=== PATIENT | female | born 1965 | race African-American/Black ===

== ENCOUNTER 2017-05-16 10:05 | Emergency (ER) | payer OTHER ==
[~2017-05-16] VITALS: Ht 157.5 cm; Wt 62.3 kg
[~2017-05-16 10:05] MED LIST: ALBU8.5H IH; AMLO-512 PO; BACL10TA PO; CLON.5 PO; FERR-89 PO; GABA-533 PO; HYDR200T4 PO; LORA10TA7 PO; OMEP20 PO; PRED5 PO; PROZ10 PO; SENN1TAB PO; SENN8.6T90 PO; VIST50 PO; VIT.D PO
[2017-05-16] MEDS ORDERED: DIPH25 PO (10:55)
[2017-05-16] MEDS ORDERED: HYDR200T4 PO (10:55)
[2017-05-16] MEDS ORDERED: ZOLP5 PO (10:55)
[2017-05-16] MEDS ORDERED: LACT30L PO (10:55)
[2017-05-16] MEDS ORDERED: BISA5TAB12 PO (10:55)
[2017-05-16] MEDS ORDERED: SUMA25TA9 PO (10:55)
[2017-05-16] MEDS ORDERED: CYCL10 PO (10:55)
[2017-05-16] MEDS ORDERED: FLUT16H NASAL (10:55)
[2017-05-16] MEDS ORDERED: NAPH10DR OU (10:57)
[2017-05-16] MEDS ORDERED: OxyCODONE HCL/ACETAMINOPHEN 5-325 MG TABLET PO ONE (12:00)
[2017-05-16] MEDS ORDERED: KETOROLAC TROMETHAMINE 60 MG/2 ML VIAL IM ONE (12:00)
[2017-05-16] MEDS ORDERED: ONDANSETRON HCL 4 MG TABLET PO ONE (12:15)
[2017-05-16 13:20] VITALS: BP 119/77
== END 2017-05-16 13:54 | disposition home or self-care (01) ==
LOC: EMS 10:06
DX: S39.012A Strain of muscle, fascia and tendon of lower back, initial encounter (principal); R07.89 Other chest pain; I10 Essential (primary) hypertension; F32.9 Major depressive disorder, single episode, unspecified; F41.9 Anxiety disorder, unspecified; G43.909 Migraine, unspecified, not intractable, without status migrainosus; F20.9 Schizophrenia, unspecified; M19.90 Unspecified osteoarthritis, unspecified site; F17.210 Nicotine dependence, cigarettes, uncomplicated; M81.0 Age-related osteoporosis without current pathological fracture; M32.9 Systemic lupus erythematosus, unspecified; Z88.8 Allergy status to other drugs, medicaments and biological substances; Z85.89 Personal history of malignant neoplasm of other organs and systems; X58.XXXA Exposure to other specified factors, initial encounter; Y93.89 Activity, other specified; Y92.89 Other specified places as the place of occurrence of the external cause; Y99.9 Unspecified external cause status
CPT/HCPCS: 71010; 93005; 96372; 99284; J1885; Q0162

== ENCOUNTER 2017-09-16 09:12 | Emergency (ER) | payer OTHER ==
[~2017-09-16] VITALS: Ht 157.5 cm; Wt 61.0 kg
[~2017-09-16 09:12] MED LIST changes: -ALBU8.5H IH; +ALBU8.5H8 IH; -BACL10TA PO; +BISA5TAB12 PO; +CYCL10 PO; +DIPH25 PO; -FERR-89 PO; +FLUT16H NASAL; +LACT30L PO; +NAPH10DR OU; -PROZ10 PO; -SENN1TAB PO; -SENN8.6T90 PO; +SUMA25TA9 PO; +ZOLP5 PO
[2017-09-16] MEDS ORDERED: DULO20CA30 PO (09:38)
[2017-09-16] MEDS ORDERED: ACET325T47 PO (09:38)
[2017-09-16 09:57] VITALS: BP 132/85
[2017-09-16] MEDS ORDERED: PROPOFOL 1000 MG/ISO-OSM 100 ML IV PRN (10:15)
[2017-09-16] MEDS ORDERED: KETOROLAC TROMETHAMINE 60 MG/2 ML VIAL IM ONE (10:45)
[2017-09-16] MEDS ORDERED: VITAD1000 PO (10:45)
[2017-09-16] MEDS ORDERED: HYDR-4031 PO (10:45)
[2017-09-16] MEDS ORDERED: METOCLOPRAMIDE HCL 5 MG/ML 2 ML VIAL IM ONE (10:45)
[2017-09-16] MEDS ORDERED: PRED10 PO (10:45)
== END 2017-09-16 10:57 | disposition home or self-care (01) ==
LOC: EMS 09:15
DX: J01.90 Acute sinusitis, unspecified (principal); L93.0 Discoid lupus erythematosus; G43.909 Migraine, unspecified, not intractable, without status migrainosus; I10 Essential (primary) hypertension; F17.210 Nicotine dependence, cigarettes, uncomplicated; Z88.8 Allergy status to other drugs, medicaments and biological substances
CPT/HCPCS: 71010; 96372; 99284; 99406; J1885; J2765

== ENCOUNTER 2018-02-14 10:03 | Emergency (ER) | payer OTHER ==
[~2018-02-14] VITALS: Ht 157.5 cm; Wt 61.0 kg
[~2018-02-14 10:03] MED LIST changes: +ACET325T47 PO; +DULO20CA30 PO; +HYDR-4031 PO; +PRED10 PO; -PRED5 PO; -VIST50 PO; -VIT.D PO; +VITAD1000 PO
[2018-02-14] MEDS ORDERED: PROZ10 PO (10:21)
[2018-02-14 10:50] VITALS: BP 133/97
[2018-02-14] MEDS ORDERED: KETOROLAC TROMETHAMINE 60 MG/2 ML VIAL IM ONE (11:15)
[2018-02-14] MEDS ORDERED: SODIUM CHLORIDE 0.9% 1,000 ML IV ONE (11:18)
== END 2018-02-14 11:33 | disposition home or self-care (01) ==
LOC: EMS 10:09
DX: G89.29 Other chronic pain (principal); L02.31 Cutaneous abscess of buttock; M25.521 Pain in right elbow; M25.522 Pain in left elbow; F17.210 Nicotine dependence, cigarettes, uncomplicated; Z95.0 Presence of cardiac pacemaker; I10 Essential (primary) hypertension; M19.90 Unspecified osteoarthritis, unspecified site; G43.909 Migraine, unspecified, not intractable, without status migrainosus
CPT/HCPCS: 96372; 99283; J1885; J7030

== ENCOUNTER 2018-05-21 12:07 | Emergency (ER) | payer OTHER ==
[~2018-05-21] VITALS: Ht 157.5 cm; Wt 59.1 kg
[~2018-05-21 12:07] MED LIST changes: -DULO20CA30 PO; +PROZ10 PO
[2018-05-21] MEDS ORDERED: GABA-531 PO (12:58)
[2018-05-21] MEDS ORDERED: DiphenhydrAMINE HCL 25 MG CAPSULE PO ONE (13:00)
[2018-05-21] MEDS ORDERED: ACETAMINOPHEN 325 MG TABLET PO ONE (13:00)
[2018-05-21] MEDS ORDERED: KETOROLAC TROMETHAMINE 30 MG/ML VIAL IM ONE (13:00)
[2018-05-21 14:58] VITALS: BP 115/71
== END 2018-05-21 14:59 | disposition home or self-care (01) ==
LOC: EMS 12:07
DX: S53.401A Unspecified sprain of right elbow, initial encounter (principal); R21 Rash and other nonspecific skin eruption; I10 Essential (primary) hypertension; F17.210 Nicotine dependence, cigarettes, uncomplicated; Z88.8 Allergy status to other drugs, medicaments and biological substances; Z91.041 Radiographic dye allergy status; W18.39XA Other fall on same level, initial encounter; Y93.89 Activity, other specified; Y92.89 Other specified places as the place of occurrence of the external cause; Y99.8 Other external cause status
CPT/HCPCS: 73080; 96372; 99284; J1885

== ENCOUNTER 2018-06-27 09:52 | Emergency (ER) | payer OTHER ==
[~2018-06-27] VITALS: Ht 157.5 cm; Wt 62.0 kg
[~2018-06-27 09:52] MED LIST changes: +GABA-531 PO; -GABA-533 PO; -PROZ10 PO
[2018-06-27] MEDS ORDERED: IBUPROFEN 600 MG TABLET PO ONE (10:15)
[2018-06-27 11:23] VITALS: BP 145/94
== END 2018-06-27 11:30 | disposition home or self-care (01) ==
LOC: EMS 09:52
DX: S93.602A Unspecified sprain of left foot, initial encounter (principal); I10 Essential (primary) hypertension; F41.9 Anxiety disorder, unspecified; F32.9 Major depressive disorder, single episode, unspecified; F17.210 Nicotine dependence, cigarettes, uncomplicated; Z88.8 Allergy status to other drugs, medicaments and biological substances; Z91.041 Radiographic dye allergy status; X58.XXXA Exposure to other specified factors, initial encounter; Y93.89 Activity, other specified; Y92.89 Other specified places as the place of occurrence of the external cause; Y99.8 Other external cause status
CPT/HCPCS: 99284

== ENCOUNTER 2019-02-23 11:04 | Emergency (ER) | payer OTHER ==
[~2019-02-23] VITALS: Ht 157.5 cm; Wt 63.6 kg
[2019-02-23] MEDS ORDERED: LIDO1ADH48 TP (11:27)
[2019-02-23] MEDS ORDERED: TRI405I TP (11:27)
[2019-02-23] MEDS ORDERED: PRED5 PO (11:27)
[2019-02-23] MEDS ORDERED: PLEC3TAB PO (11:27)
[2019-02-23] MEDS ORDERED: ALEN35TA32 PO (11:27)
[2019-02-23] MEDS ORDERED: ZOLP10TA7 PO (11:27)
[2019-02-23] MEDS ORDERED: DOCU-281 PO (11:27)
[2019-02-23] MEDS ORDERED: ASPI-988 PO (11:27)
[2019-02-23] MEDS ORDERED: HYDROCODONE/ACETAMINOPHEN 5-325 MG TABLET PO ONE (12:00)
[2019-02-23] MEDS ORDERED: PROMETHAZINE HCL 25 MG TABLET PO ONE (12:00)
[2019-02-23] MEDS ORDERED: KETOROLAC TROMETHAMINE 30 MG/ML VIAL IM ONE (12:00)
[2019-02-23 13:04] VITALS: BP 114/74
== END 2019-02-23 13:13 | disposition home or self-care (01) ==
LOC: EMS 11:05
DX: G89.29 Other chronic pain (principal); M54.5 Low back pain; I10 Essential (primary) hypertension; F32.9 Major depressive disorder, single episode, unspecified; F20.9 Schizophrenia, unspecified; F41.9 Anxiety disorder, unspecified; F17.210 Nicotine dependence, cigarettes, uncomplicated; Z91.041 Radiographic dye allergy status; Z88.8 Allergy status to other drugs, medicaments and biological substances; Z79.899 Other long term (current) drug therapy
CPT/HCPCS: 96372; 99283; J1885

== ENCOUNTER 2019-08-23 10:53 | Emergency (ER) | payer OTHER ==
[~2019-08-23] VITALS: Ht 157.5 cm; Wt 63.6 kg
[~2019-08-23 10:53] MED LIST changes: +ALEN35TA23 PO; -AMLO-512 PO; +AMLO10TA7 PO; +ASPI-988 PO; -BISA5TAB12 PO; +CHOL100018 PO; +DOCU-281 PO; +LIDO1ADH48 TP; +PLEC3TAB PO; -PRED10 PO; +PRED5 PO; +TRIA40VI TP; -VITAD1000 PO; +ZOLP10TA7 PO; -ZOLP5 PO
[2019-08-23] MEDS ORDERED: DiphenhydrAMINE HCL 25 MG CAPSULE PO ONE (13:15)
[2019-08-23 14:46] VITALS: BP 141/98
== END 2019-08-23 15:31 | disposition home or self-care (01) ==
LOC: EMS 10:55
DX: S60.011A Contusion of right thumb without damage to nail, initial encounter (principal); F41.9 Anxiety disorder, unspecified; F32.9 Major depressive disorder, single episode, unspecified; I10 Essential (primary) hypertension; G43.909 Migraine, unspecified, not intractable, without status migrainosus; F20.9 Schizophrenia, unspecified; F17.210 Nicotine dependence, cigarettes, uncomplicated; Z95.0 Presence of cardiac pacemaker; Z88.8 Allergy status to other drugs, medicaments and biological substances; Z91.041 Radiographic dye allergy status; X58.XXXA Exposure to other specified factors, initial encounter; Y93.89 Activity, other specified; Y92.89 Other specified places as the place of occurrence of the external cause; Y99.8 Other external cause status

== ENCOUNTER 2020-01-02 09:20 | Emergency (ER) | payer OTHER ==
[~2020-01-02] VITALS: Ht 157.5 cm; Wt 65.0 kg
[2020-01-02] MEDS ORDERED: KETOROLAC TROMETHAMINE 30 MG/ML VIAL IM ONE (11:00)
[2020-01-02 11:20] VITALS: BP 126/92
== END 2020-01-02 11:39 | disposition home or self-care (01) ==
LOC: EMS 09:23
DX: G89.29 Other chronic pain (principal); M54.5 Low back pain; F41.9 Anxiety disorder, unspecified; F32.9 Major depressive disorder, single episode, unspecified; I10 Essential (primary) hypertension; G43.909 Migraine, unspecified, not intractable, without status migrainosus; F20.9 Schizophrenia, unspecified; F17.210 Nicotine dependence, cigarettes, uncomplicated; Z95.0 Presence of cardiac pacemaker; Z88.8 Allergy status to other drugs, medicaments and biological substances; Z91.041 Radiographic dye allergy status
CPT/HCPCS: 96372; 99283; J1885

== ENCOUNTER 2020-03-11 09:23 | Emergency (ER) | payer OTHER ==
[~2020-03-11] VITALS: Ht 157.5 cm; Wt 63.6 kg
[~2020-03-11 09:23] MED LIST changes: +ACET-3407 PO; -ACET325T47 PO; -ALEN35TA23 PO; +ALEN35TA41 PO; +GABA-1181 PO; -GABA-531 PO; -ZOLP10TA7 PO; +ZOLP10TA8 PO
[2020-03-11] MEDS ORDERED: KETOROLAC TROMETHAMINE 30 MG/ML VIAL IM ONE (10:45)
[2020-03-11] MEDS ORDERED: LIDOCAINE 5% TRANSDERMAL PATCH TD ONE (10:45)
[2020-03-11 11:10] VITALS: BP 137/84
== END 2020-03-11 11:15 | disposition home or self-care (01) ==
LOC: EMS 09:41
DX: S39.012A Strain of muscle, fascia and tendon of lower back, initial encounter (principal); S40.021A Contusion of right upper arm, initial encounter; F17.210 Nicotine dependence, cigarettes, uncomplicated; F32.9 Major depressive disorder, single episode, unspecified; F20.9 Schizophrenia, unspecified; F41.9 Anxiety disorder, unspecified; I10 Essential (primary) hypertension; W19.XXXA Unspecified fall, initial encounter; Y93.89 Activity, other specified; Y92.89 Other specified places as the place of occurrence of the external cause; Y99.8 Other external cause status
CPT/HCPCS: 96372; 99283; 99406; J1885

== ENCOUNTER 2021-08-11 10:10 | Emergency (ER) | payer OTHER ==
[~2021-08-11] VITALS: Ht 157.5 cm; Wt 56.8 kg
[~2021-08-11 10:10] MED LIST changes: +AMLO-258 PO; -AMLO10TA7 PO; +CLON-592 PO; -CLON.5 PO; +HYDR200T38 PO; -HYDR200T4 PO; -PLEC3TAB PO; +PLEC3TAB2 PO; +PRED-409 PO; -PRED5 PO
[2021-08-11 10:31] VITALS: BP 122/75
[2021-08-11] MEDS ORDERED: LIDOCAINE 5% TRANSDERMAL PATCH TD ONE (11:30)
[2021-08-11] MEDS ORDERED: KETOROLAC TROMETHAMINE 30 MG/ML VIAL IM ONE (11:30)
[2021-08-11] MEDS ORDERED: TRI2515C TP (11:35)
[2021-08-11] MEDS ORDERED: DOCU-270 PO (11:35)
[2021-08-11] MEDS ORDERED: NAPH15DR75 OU (11:35)
[2021-08-11] MEDS ORDERED: CHOL-35 PO (11:35)
== END 2021-08-11 12:04 | disposition home or self-care (01) ==
LOC: EMS 10:14
DX: M54.50 Low back pain, unspecified (principal); F32.9 Major depressive disorder, single episode, unspecified; I10 Essential (primary) hypertension; F41.9 Anxiety disorder, unspecified; F20.9 Schizophrenia, unspecified; Z79.899 Other long term (current) drug therapy; Z91.041 Radiographic dye allergy status
CPT/HCPCS: 96372; 99283; J1885

== ENCOUNTER → 2021-08-21 | Emergency (ER) | payer OTHER ==
[~2021-08-21] VITALS: Ht 157.5 cm; Wt 59.1 kg
[~2021-08-21] MED LIST changes: +CHOL-35 PO; -CHOL100018 PO; +DOCU-270 PO; -DOCU-281 PO; -NAPH10DR OU; +NAPH15DR75 OU; +TRI2515C TP; -TRIA40VI TP
[2021-08-21 11:09] VITALS: BP 123/81
== END | disposition home or self-care (01) ==
LOC: EMS 10:50
DX: M54.50 Low back pain, unspecified (principal); Z53.21 Procedure and treatment not carried out due to patient leaving prior to being seen by health care provider

== ENCOUNTER 2022-03-11 08:25 | Emergency (ER) | payer OTHER ==
[~2022-03-11] VITALS: Ht 157.5 cm; Wt 61.4 kg
[~2022-03-11 08:25] MED LIST changes: +ASPI-835 PO; -ASPI-988 PO; -CHOL-35 PO; +CHOL25TA4 PO; +CYCL-448 PO; -CYCL10 PO; -DOCU-270 PO; +DOCU-385 PO; -HYDR-4031 PO; +HYDR-4808 PO; +LACT10SO10 PO; -LACT30L PO; -PRED-409 PO; +PRED-549 PO
[2022-03-11] MEDS ORDERED: LIDOCAINE 5% TRANSDERMAL PATCH TD ONE (08:45)
[2022-03-11] MEDS ORDERED: KETOROLAC TROMETHAMINE 60 MG/2 ML VIAL IM ONE (08:45)
[2022-03-11 11:04] VITALS: BP 140/83
== END 2022-03-11 11:07 | disposition home or self-care (01) ==
LOC: EMS 08:25
DX: G89.29 Other chronic pain (principal); M54.50 Low back pain, unspecified; F41.9 Anxiety disorder, unspecified; F32.9 Major depressive disorder, single episode, unspecified; I10 Essential (primary) hypertension; Z91.041 Radiographic dye allergy status; Z88.8 Allergy status to other drugs, medicaments and biological substances; Z95.0 Presence of cardiac pacemaker
CPT/HCPCS: 96372; 99283; J1885